=== PATIENT | female | born 1995 | race Hispanic/Latino ===

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

== ENCOUNTER 2017-07-27 17:19 | Emergency (ER) | payer OTHER ==
[2017-07-27 17:29] VITALS: BP 136/85
[2017-07-27] MEDS ORDERED: KETOROLAC TROMETHAMINE 60 MG/2 ML VIAL IM ONE ×2 (19:30→19:35)
--- NOTE | 2017-07-27 19:38 | ERNOTE ---
ENT HPI Date of Service: 07/27/17 Presenting Symptoms: dental pain Time Seen by Provider: 07/27/17 19:19 Source: patient - Immun/Allergies/Home Medications Immunizations: IMMUNIZATION HX Immunizations Up to Date Yes History of Influenza Vaccine No Hx Pneumococcal Vaccination No Allergies/Adverse Reactions: Allergies Allergy/AdvReac Type Severity Reaction Status Date / Time No Known Allergies Allergy Verified 07/27/17 17:30 Home Medications: HOME MEDICATIONS Levonorgestrel-Ethin Estradiol [[place]] 1 each PO DAILY 07/27/17 [Last Taken Unknown] - History of Present Illness Narrative: patient presents to the ED for dental pain (Back left upper molar). patient was given a temp filling this afternoon for a tooth that needs pulled. patient states when the numbing medication wore off she was in an incredible amount of pain. patient was instructed by dentist to take 1000 tylenol and 800mg motrin. patient took the tylenol and a friends Ultram. she states that pain has gotten better while she has been in waiting room but is worried it will come back after ultram wears off. Date (Duration): 07/27/17 Severity: Present: mild ENT Location: Present: dental Prearrival Treatment: Present: over the counter meds, prescription meds Modifying Factors - Improves: Reports: medication Modifying Factors - Worsens: Reports: nothing Associated Symptoms - ENT: Reports: tooth pain Review of Systems - Review of Systems Constitutional: Present: no symptoms reported EYE: Present: no symptoms reported ENT: Present: See HPI Respiratory: Present: no symptoms reported Cardiology: Present: no symptoms reported Gastrointestinal/Abdominal: Present: no symptoms reported Genitourinary: Present: no symptoms reported Musculoskeletal: Present: no symptoms reported Skin: Present: no symptoms reported Neurological: Present: no symptoms reported Endocrine: Present: no symptoms reported Hematologic/Lymphatic: Present: no symptoms reported Psych: Present: no symptoms reported All Other Systems: All systems neg except as marked - Patient's Past Medical History Patient History - Medical: Anxiety, Bipolar, Depression Patient History - Cardiac/Respiratory: No pertinent hx Patient History - Cancer: No Hx of Cancer Patient History - Surgical Procedures: No surgical history Patient History - Other: None LMP (females 10-50): last week - Social History Living Situations: home Abuse History: No History of abuse Psych History: Hx of Anxiety, Hx of Depression, Hx of Bipolar Disorder Smoking Status: Never smoker Alcohol Use: none Drug Use: none - Immunizations Immunizations Up to Date: Yes Hx Pneumococcal Vaccination: No History of Influenza Vaccine: No Physical Exam - Physical Exam Narrative: back upper left molar tender to palpation General Appearance: Present: wd/wn, alert, no apparent distress Head Exam: Present: normal inspection, no evidence of injury Eye Exam: Normal inspection: bilateral, PERRL: bilateral, EOMI: bilateral Ears, Nose, Throat: Present: normal ENT inspection, normal pharynx Neck: Present: normal inspection, nontender Respiratory: Present: no respiratory distress, normal breath sounds, no accessory muscle use, chest nontender, lungs clear Cardiovascular/Chest: Present: regular rate, rhythm, no murmur, normal peripheral pulses Gastrointestinal/Abdominal: Present: normal bowel sounds, nontender, soft Back Exam: Present: normal inspection, normal range of motion, no CVA tenderness , no vertebral tenderness Extremity Exam: Present: normal inspection, non-tender, normal range of motion, no edema Neurological Exam: Present: alert, oriented, normal mood/affect, no motor/ sensory deficits Skin Exam: Present: normal color, warm/dry Lymphatic Exam: Present: no adenopathy ED Progress - Vital Signs Patient's Vital Signs:: I have reviewed the patient's vital signs. Vital Signs: Vital Signs 07/27/17 17:25 Temperature 37.0 C Pulse Rate 80 Respiratory 16 Rate Blood Pressure 136/85 O2 Sat by Pulse 98 Oximetry - Progress/Reassessment Chief Complaint: Dental Problem Progress:: Improved Plan - Plan Plan: patient has a dental pat to get tooth pulled in the Am at 11am Departure Clinical Impression: Pain, dental - Departure Disposition: Home Follow Up Needed Condition: Stable Instructions: Tooth Injuries, [id number] Additional Instructions: keep your follow up apt with the dentist tomorrow. return to ED if pain returns and you are unable to control it with pain medication. you make take OTC pain medication as needed for pain. please follow instructions give to you by your dentist. Referrals: Zoe Rice FNP [Primary Care Provider] -
== END 2017-07-27 19:40 | disposition home or self-care (01) ==
LOC: ER 17:19
DX: K08.89 Other specified disorders of teeth and supporting structures (principal)

== ENCOUNTER 2017-10-14 21:12 | Emergency (ER) | payer BC, MEDICAID ==
[2017-10-14 21:46] VITALS: BP 161/88
[2017-10-14] MEDS ORDERED: KETOROLAC TROMETHAMINE 60 MG/2 ML VIAL IM ONE ×2 (22:25→22:35)
--- NOTE | 2017-10-14 22:38 | ERNOTE ---
Back Pain ER HPI Time Seen by Provider: 10/14/17 22:07 Source: patient Exam Limitations: no limitations Immunizations: IMMUNIZATION HX Immunizations Up to Date Yes History of Influenza Vaccine No Hx Pneumococcal Vaccination No Allergies/Adverse Reactions: Allergies risperidone Allergy (Verified 10/14/17 21:46) Home Medications: HOME MEDICATIONS Levonorgestrel-Ethin Estradiol [[place]] 1 each PO DAILY 07/27/17 [Last Taken Unknown] Nabumetone 750 mg PO BID #20 tablet 10/14/17 [Last Taken Unknown] Narrative: has had low back pain in the SI area for approx. 4 months. Worse with bending forward and sometimes with lying flat Timing: Reports: getting worse Quality/Severity: Reports: moderate, stabbing, throbbing Location of pain: Reports: lower back, other - radiation around "hips" to anterior thigh at times Recent Injury?: Reports: no Possible Precipitating Factor: Reports: none Review of Systems - Review of Systems Constitutional: Absent: recent illness EYE: Present: no symptoms reported ENT: Present: no symptoms reported Respiratory: Absent: shortness of breath Cardiology: Absent: chest pain Gastrointestinal/Abdominal: Present: no symptoms reported Genitourinary: Present: no symptoms reported Musculoskeletal: Present: See HPI Skin: Absent: rash Neurological: Absent: weakness, numbness, tingling Endocrine: Present: no symptoms reported Hematologic/Lymphatic: Present: no symptoms reported Psych: Present: no symptoms reported - Patient's Past Medical History Patient History - Medical: Anxiety, Bipolar, Depression Patient History - Cardiac/Respiratory: No pertinent hx Patient History - Cancer: No Hx of Cancer Patient History - Surgical Procedures: No surgical history Patient History - Other: None LMP (females 10-50): just had her period - Social History Living Situations: home Abuse History: No History of abuse Psych History: Hx of Anxiety, Hx of Depression, Hx of Bipolar Disorder Smoking Status: Never smoker Patient requests Smoking Cessation Consult: No Initiate information on Smoking Cessation: No Alcohol Use: none Drug Use: none - Immunizations Immunizations Up to Date: Yes Hx Pneumococcal Vaccination: No History of Influenza Vaccine: No Physical Exam - Physical Exam General Appearance: Present: wd/wn, alert, no apparent distress Back Exam: Present: normal range of motion, other - pos. standing flexion on the right. Tenderness to bilateral SI. . Absent: vertebral tenderness Extremity Exam: Present: normal inspection, normal range of motion, no edema Neurological Exam: Present: alert, oriented, normal mood/affect, no motor/ sensory deficits Skin Exam: Present: normal color, warm/dry ED Progress - Vital Signs Patient's Vital Signs:: I have reviewed the patient's vital signs. Vital Signs: Vital Signs 10/14/17 21:40 Temperature 36.9 C Pulse Rate 76 Respiratory 18 Rate Blood Pressure 161/88 O2 Sat by Pulse 100 Oximetry - Progress/Reassessment Chief Complaint: Back Pain Departure Clinical Impression: Sacroiliac dysfunction - Departure Disposition: Home Follow Up Needed Condition: Good Instructions: Sacroiliac Joint Dysfunction Additional Instructions: Call Dr. Frances Chavira or Dr. Kwasi Chavira for treatment on your back. Referrals: Zoe Rice FNP [Primary Care Provider] - Prescriptions: Nabumetone 750 mg PO BID #20 tablet
== END 2017-10-14 22:49 | disposition home or self-care (01) ==
LOC: ER 21:12
DX: M25.80 Other specified joint disorders, unspecified joint; M54.5 Low back pain; Z88.8 Allergy status to other drugs, medicaments and biological substances